=== PATIENT | male | born 1940 | race Caucasian/White ===

== ENCOUNTER 2018-02-01 14:38 | Inpatient (IN) | payer MEDICARE ==
[~2018-02-01] VITALS: Ht 157.5 cm; Wt 99.8 kg
[2018-02-01] MEDS ORDERED: PIPERACILLIN/TAZO/PMX 4.5GM 100 ML IV ONE (15:30)
[2018-02-01] MEDS ORDERED: PLEASE ENTER ALLERGIES MC SCH (15:30)
[2018-02-01] MEDS ORDERED: VANCOMYCIN PER PHARMACY MC PRN ×2 (15:30→18:00)
[2018-02-01 15:46] LABS: MEAN CORPUSCULAR HGB CONC 32.6 g/dL (33.2-36.2); MEAN CORPUSCULAR VOLUME 92.1 fL (81-97); MEAN PLATELET VOLUME 9.8 fL (7.4-10.4); PLATELET COUNT 451 x10^3/uL (130-400); RED BLOOD COUNT 3.19 x10^6/uL (4.38-5.82); RED CELL DISTRIBUTION WIDTH 17.5 % (9.4-14.8)
[2018-02-01 15:56] LABS: ALANINE AMINOTRANSFERASE 34 U/L (12-78); ALBUMIN 2.7 g/dL (3.4-5.0); CALCIUM 9.8 mg/dL (8.5-10.1); CREATININE 1.93 mg/dL (0.7-1.3)
[2018-02-01 16:00] LABS: ALKALINE PHOSPHATASE 72 U/L (45-117); BILIRUBIN,TOTAL 0.6 mg/dL (0.2-1.0); TOTAL PROTEIN 8.2 g/dL (6.4-8.2); TROPONIN I 0.066 ng/mL (0.000-0.045)
[2018-02-01] MEDS ORDERED: AZTREONAM 1 GM in SODIUM CHLORIDE 0.9% 50 ML IV ONE (16:00)
[2018-02-01] MEDS ORDERED: VANCOMYCIN 2,000 MG in SODIUM CHLORIDE 0.9% 500 ML IV ONE (16:00)
[2018-02-01] MEDS ORDERED: PHARMACOKINETIC CONSULTATION MC ONE ×2 (16:00→20:00)
[2018-02-01 16:09] LABS: ANION GAP 8 mmol/L (5-15); CHLORIDE 130 mmol/L (98-107)
[2018-02-01 16:12] LABS: INTERNATIONAL NORMALIZED RATIO 1.24 (0.93-1.1); PROTHROMBIN TIME 12.7 Seconds (9.6-11.5)
[2018-02-01 16:20] LABS: BASOPHILS # (AUTO) 0.06 x10^3/uL (0-0.1); BASOPHILS % (AUTO) 0 % (0-1); EOSINOPHILS # (AUTO) 0.18 x10^3/uL (0-0.4); EOSINOPHILS % (AUTO) 1 % (1-7); LYMPHOCYTES # (AUTO) 2.72 x10^3/uL (1-3.4); LYMPHOCYTES % (AUTO) 13 % (22-44); MD SCAN; MONOCYTES # (AUTO) 2.09 x10^3/uL (0.2-0.8); MONOCYTES % (AUTO) 10 % (2-9); NEUTROPHILS # (AUTO) 15.76 x10^3/uL (1.8-6.8); NEUTROPHILS % (AUTO) 76 % (42-75)
[2018-02-01 16:30] LABS: CULTURE INDICATED? YES; MICROSCOPIC INDICATED
[2018-02-01] MEDS ORDERED: MAGN400O7 PO (16:37)
[2018-02-01] MEDS ORDERED: MULT-717 PO (16:37)
[2018-02-01] MEDS ORDERED: SENN-99 PO (16:37)
[2018-02-01] MEDS ORDERED: IPRA3AMP30 INH (16:37)
[2018-02-01] MEDS ORDERED: BISA10SU54 PR (16:37)
[2018-02-01] MEDS ORDERED: HYDR-3240 PO (16:37)
[2018-02-01] MEDS ORDERED: PREG25CA PO (16:37)
[2018-02-01] MEDS ORDERED: RANI150T23 PO (16:37)
[2018-02-01] MEDS ORDERED: SOLI5TAB2 PO (16:37)
[2018-02-01] MEDS ORDERED: GUAI400T66 PO (16:37)
[2018-02-01] MEDS ORDERED: CLOB15OI TD (16:37)
[2018-02-01] MEDS ORDERED: CHOL5000 PO (16:37)
[2018-02-01] MEDS ORDERED: DONE10TA7 PO (16:37)
[2018-02-01] MEDS ORDERED: ONDA4TAB7 PO (16:37)
[2018-02-01] MEDS ORDERED: SIME80TA15 PO (16:37)
[2018-02-01] MEDS ORDERED: RIVA20TA PO (16:37)
[2018-02-01] MEDS ORDERED: LOPE2TAB28 PO (16:37)
[2018-02-01] MEDS ORDERED: FLUT1DIS IH (16:37)
[2018-02-01] MEDS ORDERED: POLY17PO5 PO (16:37)
[2018-02-01] MEDS ORDERED: MELA1TAB6 PO (16:37)
[2018-02-01] MEDS ORDERED: VANCOMYCIN PER PHARMACY MC ONE (17:30)
[2018-02-01] MEDS ORDERED: morphine SULFATE 10 MG/ML, 1ML IVPush PRN (18:00)
[2018-02-01] MEDS ORDERED: ONDANSETRON 2MG/ML, 2ML IVPush PRN (18:00)
[2018-02-01] MEDS ORDERED: POTASSIUM CHLORIDE 20 MEQ in DEXTROSE 5% 1,000 ML IV SCH (18:00)
[2018-02-01 18:39] LABS: HCT (SEDRATE) 29.4 % (39.2-51.8)
[2018-02-01 18:40] LABS: FREE T4 (FREE THYROXINE) 1.17 ng/dL (0.76-1.46); THYROID STIMULATING HORMONE 0.46 mIU/L (0.358-3.740)
[2018-02-01 19:31] VITALS: BP 113/71
[2018-02-01] MEDS ORDERED: PHARMACOKINETIC MONITORING MC PRN (20:00)
[2018-02-01] MEDS: AMPICILLIN/SULBACTAM 3 GM in SODIUM CHLORIDE 0.9% 100 ML IV SCH (21:47)
[2018-02-01] MEDS: POTASSIUM CHLORIDE 20 MEQ in DEXTROSE 5% 1,000 ML IV SCH (22:15)
[2018-02-01] MEDS: HEPARIN 5,000 UNITS/ML, 1ML SQ SCH (22:20)
[2018-02-01] MEDS: PANTOPRAZOLE 40 MG IV IVPush SCH (22:20)
[2018-02-01 23:17] LABS: TROPONIN I 0.079 ng/mL (0.000-0.045)
[2018-02-02] VITALS (9 sets, daily range): BP systolic 87–113; BP diastolic 48–69
[2018-02-02] MEDS: AMPICILLIN/SULBACTAM 3 GM in SODIUM CHLORIDE 0.9% 100 ML IV SCH ×4 (03:54→22:04)
[2018-02-02] MEDS: POTASSIUM CHLORIDE 20 MEQ in DEXTROSE 5% 1,000 ML IV SCH ×3 (04:03→21:13)
[2018-02-02 05:33] LABS: MEAN CORPUSCULAR HEMOGLOBIN 29.8 pg (27.5-34.5); MEAN CORPUSCULAR HGB CONC 31.8 g/dL (33.2-36.2); MEAN CORPUSCULAR VOLUME 93.7 fL (81-97); MEAN PLATELET VOLUME 9.9 fL (7.4-10.4); PLATELET COUNT 400 x10^3/uL (130-400); RED BLOOD COUNT 3.03 x10^6/uL (4.38-5.82); RED CELL DISTRIBUTION WIDTH 17.8 % (9.4-14.8)
[2018-02-02 05:39] LABS: ALBUMIN 2.5 g/dL (3.4-5.0); ANION GAP 4 mmol/L (5-15); CALCIUM 9.2 mg/dL (8.5-10.1); CHLORIDE 125 mmol/L (98-107)
[2018-02-02 05:45] LABS: ALANINE AMINOTRANSFERASE 29 U/L (12-78); ALKALINE PHOSPHATASE 67 U/L (45-117); BILIRUBIN,TOTAL 0.6 mg/dL (0.2-1.0); CREATININE 1.72 mg/dL (0.7-1.3); TOTAL PROTEIN 7.6 g/dL (6.4-8.2); TROPONIN I 0.065 ng/mL (0.000-0.045)
[2018-02-02 06:13] LABS: BASOPHILS # (AUTO) 0.04 x10^3/uL (0-0.1); BASOPHILS % (AUTO) 0 % (0-1); EOSINOPHILS # (AUTO) 0.67 x10^3/uL (0-0.4); EOSINOPHILS % (AUTO) 3 % (1-7); LYMPHOCYTES # (AUTO) 3.48 x10^3/uL (1-3.4); LYMPHOCYTES % (AUTO) 16 % (22-44); MD SCAN; MONOCYTES # (AUTO) 1.73 x10^3/uL (0.2-0.8); MONOCYTES % (AUTO) 8 % (2-9); NEUTROPHILS % (AUTO) 72 % (42-75)
[2018-02-02] MEDS: HEPARIN 5,000 UNITS/ML, 1ML SQ SCH (06:50)
[2018-02-02] MEDS ORDERED: ALBUTEROL SULFATE 2.5 MG/3 ML NPPB SCH (07:00)
[2018-02-02] MEDS ORDERED: ENOXAPARIN 100 MG/ML SQ SCH (08:00)
[2018-02-02] MEDS ORDERED: INSULIN LISPRO 100 UNITS/ML, PEN SQ-INSULIN SCH (08:00)
[2018-02-02] MEDS: DIPHENHYDRAMINE 50 MG/ML, 1ML IVPush PRN (09:08)
[2018-02-02] MEDS: PANTOPRAZOLE 40 MG IV IVPush SCH ×2 (09:08→21:12)
[2018-02-02] MEDS: INSULIN LISPRO 100 UNITS/ML, PEN SQ-INSULIN SCH ×3 (11:46→23:15)
[2018-02-02 12:21] LABS: ANION GAP 6 mmol/L (5-15); CALCIUM 9.2 mg/dL (8.5-10.1); CHLORIDE 122 mmol/L (98-107); CREATININE 1.48 mg/dL (0.7-1.3)
[2018-02-02] MEDS ORDERED: POTASSIUM CHLORIDE 20 MEQ in DEXTROSE 5% 1,000 ML IV SCH (18:00)
[2018-02-03 02:41] VITALS: BP 100/59
[2018-02-03] MEDS: AMPICILLIN/SULBACTAM 3 GM in SODIUM CHLORIDE 0.9% 100 ML IV SCH ×4 (04:06→22:13)
[2018-02-03] MEDS ORDERED: VANCOMYCIN 2,000 MG in SODIUM CHLORIDE 0.9% 500 ML IV SCH (05:00)
[2018-02-03] MEDS: POTASSIUM CHLORIDE 20 MEQ in DEXTROSE 5% 1,000 ML IV SCH ×3 (05:25→22:23)
[2018-02-03] MEDS: INSULIN LISPRO 100 UNITS/ML, PEN SQ-INSULIN SCH ×4 (05:46→22:19)
[2018-02-03 06:06] LABS: BASOPHILS # (AUTO) 0.04 x10^3/uL (0-0.1); BASOPHILS % (AUTO) 0 % (0-1); EOSINOPHILS # (AUTO) 1.03 x10^3/uL (0-0.4); EOSINOPHILS % (AUTO) 7 % (1-7); LYMPHOCYTES % (AUTO) 19 % (22-44); MD NO; MEAN CORPUSCULAR HEMOGLOBIN 29.6 pg (27.5-34.5); MEAN CORPUSCULAR HGB CONC 32.3 g/dL (33.2-36.2); MEAN CORPUSCULAR VOLUME 91.5 fL (81-97); MEAN PLATELET VOLUME 9.3 fL (7.4-10.4); MONOCYTES # (AUTO) 0.89 x10^3/uL (0.2-0.8); MONOCYTES % (AUTO) 6 % (2-9); NEUTROPHILS # (AUTO) 9.91 x10^3/uL (1.8-6.8); NEUTROPHILS % (AUTO) 68 % (42-75); PLATELET COUNT 334 x10^3/uL (130-400); RED BLOOD COUNT 2.66 x10^6/uL (4.38-5.82); RED CELL DISTRIBUTION WIDTH 16.8 % (9.4-14.8)
[2018-02-03 06:10] LABS: ALANINE AMINOTRANSFERASE 25 U/L (12-78); ALBUMIN 2.2 g/dL (3.4-5.0); ANION GAP 8 mmol/L (5-15); CALCIUM 8.6 mg/dL (8.5-10.1); CHLORIDE 114 mmol/L (98-107); CREATININE 1.28 mg/dL (0.7-1.3)
[2018-02-03 06:12] LABS: ALKALINE PHOSPHATASE 66 U/L (45-117); BILIRUBIN,TOTAL 0.7 mg/dL (0.2-1.0)
[2018-02-03 06:13] LABS: HEMOGLOBIN A1C 6.7 % (4.2-6.3)
[2018-02-03 06:52] VITALS: BP 103/53
[2018-02-03] MEDS: PANTOPRAZOLE 40 MG IV IVPush SCH ×2 (10:43→20:43)
[2018-02-03] MEDS: ENOXAPARIN 100 MG/ML SQ SCH ×2 (10:44→20:39)
[2018-02-03 14:34] VITALS: BP 101/61
[2018-02-03 18:57] VITALS: BP 93/53
[2018-02-04 01:08] VITALS: BP 97/57
[2018-02-04] MEDS: AMPICILLIN/SULBACTAM 3 GM in SODIUM CHLORIDE 0.9% 100 ML IV SCH ×3 (04:01→16:09)
[2018-02-04] MEDS: INSULIN LISPRO 100 UNITS/ML, PEN SQ-INSULIN SCH ×4 (05:05→21:40)
[2018-02-04 05:46] LABS: BASOPHILS # (AUTO) 0.04 x10^3/uL (0-0.1); BASOPHILS % (AUTO) 0 % (0-1); EOSINOPHILS # (AUTO) 0.63 x10^3/uL (0-0.4); EOSINOPHILS % (AUTO) 6 % (1-7); LYMPHOCYTES # (AUTO) 2.57 x10^3/uL (1-3.4); LYMPHOCYTES % (AUTO) 23 % (22-44); MD NO; MEAN CORPUSCULAR HGB CONC 32.9 g/dL (33.2-36.2); MEAN CORPUSCULAR VOLUME 91.4 fL (81-97); MEAN PLATELET VOLUME 9.8 fL (7.4-10.4); MONOCYTES # (AUTO) 0.96 x10^3/uL (0.2-0.8); MONOCYTES % (AUTO) 9 % (2-9); NEUTROPHILS # (AUTO) 6.83 x10^3/uL (1.8-6.8); NEUTROPHILS % (AUTO) 62 % (42-75); PLATELET COUNT 304 x10^3/uL (130-400); RED BLOOD COUNT 2.51 x10^6/uL (4.38-5.82); RED CELL DISTRIBUTION WIDTH 16.9 % (9.4-14.8)
[2018-02-04 06:02] LABS: ALBUMIN 2.1 g/dL (3.4-5.0); ANION GAP 6 mmol/L (5-15); CALCIUM 8.8 mg/dL (8.5-10.1); CHLORIDE 113 mmol/L (98-107)
[2018-02-04 06:06] LABS: ALANINE AMINOTRANSFERASE 19 U/L (12-78); ALKALINE PHOSPHATASE 56 U/L (45-117); BILIRUBIN,TOTAL 0.6 mg/dL (0.2-1.0); CREATININE 1.17 mg/dL (0.7-1.3); TOTAL PROTEIN 6.8 g/dL (6.4-8.2)
[2018-02-04] MEDS: POTASSIUM CHLORIDE 20 MEQ in DEXTROSE 5% 1,000 ML IV SCH (06:48)
[2018-02-04 06:50] VITALS: BP 103/60
[2018-02-04] MEDS ORDERED: MAGNESIUM SULFATE PMX 2GM/50ML 50 ML IV ONE (08:30)
[2018-02-04] MEDS: PANTOPRAZOLE 40 MG IV IVPush SCH ×2 (08:57→21:34)
[2018-02-04] MEDS: POTASSIUM PHOSPHATE 44 MEQ in SODIUM CHLORIDE 0.9% 500 ML IV SCH ×2 (08:58→16:08)
[2018-02-04] MEDS: ENOXAPARIN 100 MG/ML SQ SCH ×2 (08:58→20:27)
[2018-02-04 12:56] VITALS: BP 92/58
[2018-02-04] MEDS ORDERED: VANCOMYCIN 2,000 MG in SODIUM CHLORIDE 0.9% 500 ML IV SCH (17:00)
[2018-02-04 19:44] VITALS: BP 92/60
[2018-02-04] MEDS ORDERED: POTASSIUM CHLORIDE 20 MEQ in DEXTROSE 5% 1,000 ML IV SCH (22:30)
[2018-02-05] MEDS: AMPICILLIN/SULBACTAM 3 GM in SODIUM CHLORIDE 0.9% 100 ML IV SCH ×4 (00:01→17:40)
[2018-02-05 01:06] VITALS: BP 99/65
[2018-02-05] MEDS: INSULIN LISPRO 100 UNITS/ML, PEN SQ-INSULIN SCH ×4 (05:27→22:01)
[2018-02-05 06:37] LABS: MEAN CORPUSCULAR HEMOGLOBIN 29.5 pg (27.5-34.5); MEAN CORPUSCULAR HGB CONC 32.6 g/dL (33.2-36.2); MEAN CORPUSCULAR VOLUME 90.6 fL (81-97); MEAN PLATELET VOLUME 9.7 fL (7.4-10.4); PLATELET COUNT 292 x10^3/uL (130-400); RED BLOOD COUNT 2.48 x10^6/uL (4.38-5.82)
[2018-02-05 06:39] LABS: ANION GAP 8 mmol/L (5-15); CALCIUM 8.2 mg/dL (8.5-10.1); CHLORIDE 113 mmol/L (98-107)
[2018-02-05 06:42] LABS: ALANINE AMINOTRANSFERASE 16 U/L (12-78); ALKALINE PHOSPHATASE 57 U/L (45-117); BILIRUBIN,TOTAL 0.5 mg/dL (0.2-1.0); CREATININE 1.03 mg/dL (0.7-1.3); TOTAL PROTEIN 6.5 g/dL (6.4-8.2)
[2018-02-05 07:25] VITALS: BP 96/47
[2018-02-05] MEDS: VANCOMYCIN 2,000 MG in SODIUM CHLORIDE 0.9% 500 ML IV SCH (07:37)
[2018-02-05] MEDS: ENOXAPARIN 100 MG/ML SQ SCH ×2 (07:37→21:34)
[2018-02-05] MEDS: PANTOPRAZOLE 40 MG IV IVPush SCH ×2 (07:37→21:34)
[2018-02-05 07:59] LABS: BASOPHILS # (AUTO) 0.03 x10^3/uL (0-0.1); BASOPHILS % (AUTO) 0 % (0-1); EOSINOPHILS # (AUTO) 0.43 x10^3/uL (0-0.4); EOSINOPHILS % (AUTO) 4 % (1-7); LYMPHOCYTES # (AUTO) 2.55 x10^3/uL (1-3.4); LYMPHOCYTES % (AUTO) 26 % (22-44); MD SCAN; MONOCYTES # (AUTO) 0.65 x10^3/uL (0.2-0.8); MONOCYTES % (AUTO) 7 % (2-9); NEUTROPHILS # (AUTO) 6.25 x10^3/uL (1.8-6.8); NEUTROPHILS % (AUTO) 63 % (42-75)
[2018-02-05 13:12] VITALS: BP 94/47
[2018-02-05 20:03] VITALS: BP 122/67
[2018-02-06 00:42] VITALS: BP 116/63
[2018-02-06] MEDS: AMPICILLIN/SULBACTAM 3 GM in SODIUM CHLORIDE 0.9% 100 ML IV SCH ×4 (03:30→22:12)
[2018-02-06] MEDS: INSULIN LISPRO 100 UNITS/ML, PEN SQ-INSULIN SCH ×4 (04:54→23:07)
[2018-02-06 07:20] VITALS: BP 114/71
[2018-02-06] MEDS: ENOXAPARIN 100 MG/ML SQ SCH ×3 (09:45→20:36)
[2018-02-06] MEDS: PANTOPRAZOLE 40 MG IV IVPush SCH ×2 (09:46→20:37)
[2018-02-06 13:58] VITALS: BP 120/62
[2018-02-06] MEDS ORDERED: VANC1VIA3 IV (14:08)
[2018-02-06] MEDS ORDERED: OMEP-110 PO (14:08)
[2018-02-06] MEDS ORDERED: AMPI3VIA IV (14:08)
[2018-02-06] MEDS ORDERED: ENOX100S4 SQ (14:08)
[2018-02-06] MEDS ORDERED: REGADENOSON 0.4 MG/5 ML SYRINGE ONE (14:27)
[2018-02-06 20:30] VITALS: BP 95/61
[2018-02-06] MEDS: METOPROLOL TARTRATE 25 MG TABLET PO SCH (20:32)
[2018-02-06] MEDS ORDERED: ATORVASTATIN 40 MG TABLET PO SCH (21:00)
[2018-02-07] MEDS: AMPICILLIN/SULBACTAM 3 GM in SODIUM CHLORIDE 0.9% 100 ML IV SCH ×2 (04:00→11:02)
[2018-02-07 04:05] VITALS: BP 131/76
[2018-02-07] MEDS: INSULIN LISPRO 100 UNITS/ML, PEN SQ-INSULIN SCH (05:10)
[2018-02-07 05:12] LABS: BASOPHILS # (AUTO) 0.05 x10^3/uL (0-0.1); BASOPHILS % (AUTO) 1 % (0-1); EOSINOPHILS # (AUTO) 0.41 x10^3/uL (0-0.4); EOSINOPHILS % (AUTO) 4 % (1-7); LYMPHOCYTES # (AUTO) 2.63 x10^3/uL (1-3.4); LYMPHOCYTES % (AUTO) 23 % (22-44); MD NO; MEAN CORPUSCULAR HEMOGLOBIN 29.9 pg (27.5-34.5); MEAN CORPUSCULAR VOLUME 90.5 fL (81-97); MEAN PLATELET VOLUME 9.2 fL (7.4-10.4); MONOCYTES # (AUTO) 0.82 x10^3/uL (0.2-0.8); MONOCYTES % (AUTO) 7 % (2-9); NEUTROPHILS % (AUTO) 65 % (42-75); PLATELET COUNT 363 x10^3/uL (130-400); RED BLOOD COUNT 2.66 x10^6/uL (4.38-5.82); RED CELL DISTRIBUTION WIDTH 17.2 % (9.4-14.8)
[2018-02-07] MEDS: DIPHENHYDRAMINE 50 MG/ML, 1ML IVPush PRN (05:12)
[2018-02-07 05:18] LABS: CHLORIDE 112 mmol/L (98-107)
[2018-02-07 05:29] LABS: ALANINE AMINOTRANSFERASE 20 U/L (12-78); ALBUMIN 2.2 g/dL (3.4-5.0); ALKALINE PHOSPHATASE 70 U/L (45-117); ANION GAP 8 mmol/L (5-15); BILIRUBIN,TOTAL 0.4 mg/dL (0.2-1.0); CALCIUM 8.5 mg/dL (8.5-10.1); CHOL/HDL RATIO 6.6; CHOLESTEROL, TOTAL 119 mg/dL (140-239); CREATININE 0.99 mg/dL (0.7-1.3); HDL CHOL % 15 % (26-37); HDL CHOLESTEROL (DIRECT) 18 mg/dL (40-60); LDL CHOLESTEROL,CALCULATED 81 mg/dL (54-169); LDL/HDL RATIO 4.5 (0.5-3.0); TOTAL PROTEIN 7.2 g/dL (6.4-8.2); TRIGLYCERIDES 101 mg/dL (50-200); VLDL CHOLESTEROL 20 mg/dL (0-25)
[2018-02-07] MEDS ORDERED: ASPIRIN 81 MG TABLET EC PO SCH (06:00)
[2018-02-07] MEDS: ENOXAPARIN 100 MG/ML SQ SCH (08:00)
[2018-02-07 08:13] VITALS: BP 119/63
[2018-02-07] MEDS: PANTOPRAZOLE 40 MG IV IVPush SCH (08:30)
[2018-02-07] MEDS: METOPROLOL TARTRATE 25 MG TABLET PO SCH (08:30)
[2018-02-07] MEDS: VANCOMYCIN 2,000 MG in SODIUM CHLORIDE 0.9% 500 ML IV SCH (08:31)
[2018-02-07] MEDS ORDERED: METO25TA35 PO (08:51)
[2018-02-07] MEDS ORDERED: EZET10TA18 PO (08:51)
[2018-02-07] MEDS ORDERED: POTASSIUM CHLORIDE 20 MEQ TAB.ER.PRT NG SCH (09:00)
[2018-02-07] MEDS ORDERED: POTA20PA PO (11:18)
== END 2018-02-07 12:01 | DRG 871 ==
LOC: ED 16:45 → SUATTDRO 17:17 → EDIP 18:33 → 5SO 19:23
PROVIDERS: ADMIT Hospitalist; ATTEND Hospitalist
PROC: 0T9B70Z Drainage of Bladder with Drainage Device, Via Natural or Artificial Opening (ICD-10-PCS; principal; 2018-02-01)
DX: A41.9 Sepsis, unspecified organism (principal); G93.40 Encephalopathy, unspecified; E43 Unspecified severe protein-calorie malnutrition; J96.00 Acute respiratory failure, unspecified whether with hypoxia or hypercapnia; N17.0 Acute kidney failure with tubular necrosis; N39.0 Urinary tract infection, site not specified; E87.0 Hyperosmolality and hypernatremia; E86.0 Dehydration; E11.65 Type 2 diabetes mellitus with hyperglycemia; F03.90 Unspecified dementia, unspecified severity, without behavioral disturbance, psychotic disturbance, mood disturbance, and anxiety; B95.62 Methicillin resistant Staphylococcus aureus infection as the cause of diseases classified elsewhere; I48.2 Chronic atrial fibrillation; Z66 Do not resuscitate; R91.1 Solitary pulmonary nodule; B96.4 Proteus (mirabilis) (morganii) as the cause of diseases classified elsewhere; R13.10 Dysphagia, unspecified; Z79.01 Long term (current) use of anticoagulants; Z88.6 Allergy status to analgesic agent; Z88.1 Allergy status to other antibiotic agents; Z88.5 Allergy status to narcotic agent; Z88.8 Allergy status to other drugs, medicaments and biological substances; Z86.14 Personal history of Methicillin resistant Staphylococcus aureus infection; Z87.891 Personal history of nicotine dependence; Z89.512 Acquired absence of left leg below knee; Z89.611 Acquired absence of right leg above knee; Z93.59 Other cystostomy status
CPT/HCPCS: 36415; 71045; 71250; 74018; 74230; 76770; 78452; 80048; 80053; 80061; 80202; 81001; 82962; 83036; 83605; 83735; 84100; 84145; 84439; 84443; 84484; 85025; 85610; 85651; 87040; 87070; 87077; 87086; 87186; 87205; 93005; 93017; 93306; 96365; 96366; 96368; 99291; J0295; J1644; J1650; J2785; J3370; J3480; J7070; A9502; C9113; C9898; J1200; J1815; J3475; J7040